=== PATIENT | female | born 2000 | race Caucasian/White ===

== ENCOUNTER 2020-07-04 14:37 | Outpatient (CLI) | payer OTHER | END 2020-07-04 14:38 | disposition home or self-care (01) | LOC: COV 14:37 | PROVIDERS: ATTEND Family Medicine | DX: Z20.828 Contact with and (suspected) exposure to other viral communicable diseases (principal) ==

== ENCOUNTER 2020-08-19 09:19 | Outpatient (CLI) | payer OTHER ==
[2020-08-19 10:38] LABS: BASOPHILS # (AUTO) 0.1 10^3/uL (0.0-0.1); BASOPHILS % (AUTO) 0.8 %; EOSINOPHILS # (AUTO) 0.3 10^3/uL (0.0-0.7); EOSINOPHILS % (AUTO) 5.2 %; HGB - HEMOGLOBIN 13.5 g/dL (12.0-16.0); LYMPHOCYTES # (AUTO) 1.1 10^3/uL (1.5-3.5); LYMPHOCYTES % (AUTO) 17.9 %; MEAN CORPUSCULAR HEMOGLOBIN 30.1 pg (27.0-31.0); MEAN CORPUSCULAR VOLUME 88.4 fL (81.0-99.0); MEAN PLATELET VOLUME 9.4 fL (7.9-10.8); MONOCYTES # (AUTO) 0.4 10^3/uL (0.0-1.0); NEUTROPHILS # (AUTO) 4.4 10^3/uL (1.5-6.6); NEUTROPHILS % (AUTO) 69.9 %; PLT - PLATELET COUNT 307 10^3/uL (130-450); RED BLOOD COUNT 4.49 10^6/uL (4.20-5.40); RED CELL DISTRIBUTION WIDTH 12.4 % (12.0-15.0); WHITE BLOOD COUNT 6.3 x10^3/uL (4.8-10.8)
[2020-08-19 10:47] LABS: ALBUMIN 4.4 g/dL (3.2-5.5); ALBUMIN/GLOBULIN RATIO 1.4 (1.0-2.2); BILIRUBIN,TOTAL 0.9 mg/dL (0.2-1.0); CALCIUM 8.9 mg/dL (8.5-10.3); CREATININE 0.8 mg/dL (0.4-1.0); TOTAL PROTEIN 7.5 g/dL (6.7-8.2)
--- NOTE | 2020-08-19 11:50 | Ultrasound Report ---
PROCEDURE: Abdomen Complete INDICATIONS: ABD PAIN TECHNIQUE: Real-time scanning was performed of the abdominal and retroperitoneal organs, with image documentatio n. COMPARISON: None. FINDINGS: Liver: Liver is normal in size and homogeneous in echotexture. Gallbladder: Gallbladder is normal in appearance without gallstones, gallbladder wall thickening, or pericholecystic fluid. Negative sonographic Chow's sign. Biliary ducts: Intrahepatic bile ducts are non-dilated. Extrahepatic bile duct caliber measures 2 m m. Normal is 6-7 mm or less in diameter, or 10 mm or less post-cholecystectomy. Pancreas: Visualized portions of the pancreas are sonographically normal. Spleen: Spleen is normal in size and homogeneous in echotexture. Kidneys: Kidneys are normal in size and echotexture. Right kidney measures 11.3 cm long; left kidne y measures 10.3 cm long. No hydronephrosis or nephrolithiasis. No solid masses. Aorta: Visualized aorta is normal in caliber at less than 3 cm. Iliacs: Proximal common iliac arteries are normal in caliber at less than 2.5 cm. IVC: Intrahepatic inferior vena cava is patent. Miscellaneous: No free abdominal fluid. IMPRESSION: Normal sonographic evaluation of the abdomen. No acute sonographic abnormalities identified to explai n patient's symptoms. Reviewed by: Christian Vazquez MD on 08/19/2020 10:49 AM [facility] Approved by: Christian Vazquez MD on 08/19/2020 10:49 AM [facility] Station ID: [id number]
== END 2020-08-19 09:20 | disposition home or self-care (01) ==
LOC: DI 09:19
PROVIDERS: ATTEND Physician Assistant
DX: R10.9 Unspecified abdominal pain (principal); R11.0 Nausea; R63.4 Abnormal weight loss; R63.0 Anorexia
CPT/HCPCS: 36415; 76700; 80053; 84443; 84702; 85025

== ENCOUNTER 2020-09-11 08:49 | Outpatient (CLI) | payer OTHER ==
[2020-09-11] MEDS ORDERED: SINCALIDE 5 MCG VIAL ONE (10:03)
[2020-09-11] MEDS ORDERED: SINCALIDE 1 MCG in SODIUM CHLORIDE 0.9% 50 ML IV ONE (12:22)
--- NOTE | 2020-09-11 12:31 | Nuclear Medicine Report ---
PROCEDURE: Hepatobiliary HIDA w/ Rx INDICATIONS: RUQ PAIN, ANOREXIA, NAUSEA WITH VOMITING RADIOPHARMACEUTICAL: 5.25 mCi Tc-99m mebrofenin intravenously, and 1.0 ?g sincalide i.v. TECHNIQUE: Following intravenous administration of Tc-99m mebrofenin, sequential anterior abdominal images were obtained through 120 minutes. To evaluate the contractile response of the gallbladder in response to Cholecystokinin (CCK), 1.0 microgram sincalide (0.02 ?g/kg) was administered by slow int ravenous infusion approximately 60 minutes after the administration of the radiopharmaceutical. Sequ ential imaging was continued for 30 minutes after the start of CCK infusion. Gallbladder ejection fr action was calculated. COMPARISON: None. FINDINGS: Biliary scan: There is normal tracer uptake and excretion by the liver. There is normal visualizati on of the intrahepatic ducts, common bile duct, and gallbladder. There is normal tracer transit into the duodenum. CCK stimulation: There is normal contractile response of the gallbladder to CCK infusion. The calcu lated gallbladder ejection fraction is 74%; normal values are above 35%. IMPRESSION: 1. Normal biliary imaging study. 2. Normal contractile response of gallbladder to CCK infusion.. Reviewed by: Rohit Tobar MD on 09/11/2020 12:29 PM PST Approved by: Rohit Tobar MD on 09/11/2020 12:29 PM PST Station ID: [id number]
== END 2020-09-11 08:50 | disposition home or self-care (01) ==
LOC: DI 08:49
PROVIDERS: ATTEND Physician Assistant
DX: R10.11 Right upper quadrant pain (principal); R63.0 Anorexia; R11.2 Nausea with vomiting, unspecified
CPT/HCPCS: 78227; J7040

== ENCOUNTER 2021-01-08 07:00 | Outpatient (CLI) | payer OTHER | END 2021-01-08 23:59 | disposition home or self-care (01) | LOC: LAB 07:00 | PROVIDERS: ATTEND Physician Assistant Medical | DX: R05 Cough (principal); Z20.822 Contact with and (suspected) exposure to COVID-19 | CPT/HCPCS: 87275; 87276 ==

== ENCOUNTER 2021-05-16 11:29 | Outpatient (CLI) | payer OTHER | END 2021-05-16 23:59 | disposition home or self-care (01) | LOC: LAB.N 11:29 | PROVIDERS: ATTEND Nurse Practitioner | DX: R05 Cough (principal); Z20.822 Contact with and (suspected) exposure to COVID-19 ==

== ENCOUNTER 2021-08-14 13:16 | Outpatient (CLI) | payer OTHER | END 2021-08-14 23:59 | disposition home or self-care (01) | LOC: LAB.N 13:16 | PROVIDERS: ATTEND Physician Assistant Medical | DX: R07.0 Pain in throat (principal); Z20.822 Contact with and (suspected) exposure to COVID-19 ==